=== PATIENT | female | born 1995 ===

== ENCOUNTER 2020-07-27 11:36 | Outpatient (CLI) | payer OTHER | END 2020-07-27 15:00 | disposition home or self-care (01) | LOC: LAB 11:36 | DX: U07.1 COVID-19 (principal); R05 Cough ==

== ENCOUNTER 2020-08-29 05:03 | Emergency (ER) | payer OTHER ==
[~2020-08-29] VITALS: Ht 152.4 cm; Wt 72.6 kg
[2020-08-29] MEDS ORDERED: [UNRECOGNIZED DRUG - OTHER] (05:26)
== END 2020-08-29 12:08 | disposition home or self-care (01) ==
LOC: ER 05:03
DX: N39.0 Urinary tract infection, site not specified (principal); R31.29 Other microscopic hematuria; R10.2 Pelvic and perineal pain; M25.552 Pain in left hip; Z03.818 Encounter for observation for suspected exposure to other biological agents ruled out